=== PATIENT | female | born 1985 | race Caucasian/White ===

== ENCOUNTER 2018-01-10 00:23 | Emergency (ER) | payer MEDICAID ==
[2018-01-10 00:35] LABS: URINE APPEARANCE CLOUDY; URINE BILIRUBIN NEGATIVE (NEGATIVE); URINE BLOOD NEGATIVE (NEGATIVE); URINE COLOR YELLOW; URINE GLUCOSE (UA) NEGATIVE (NEGATIVE); URINE KETONE NEGATIVE (NEGATIVE); URINE LEUKOCYTE ESTERASE NEGATIVE (NEGATIVE); URINE NITRITE NEGATIVE (NEGATIVE); URINE PROTEIN NEGATIVE (NEGATIVE); URINE UROBILINOGEN 0.2 E.U./dL (0.20 - 1.00)
--- NOTE | 2018-01-10 00:36 | Emergency Department Record ---
History of Present Illness - General Chief complaint: Flank Pain Stated complaint: FLANK PAIN Time Seen by Provider: 01/10/18 00:23 Source: Patient Mode of Arrival: Ambulatory Limitations: No limitations - History of Present Illness Initial comments: 32 yo female presents to ED for evaluation of dysuria symptoms and right sided flank pain symptoms. Patient denies fevers, chills, abdominal pain, or vomiting symptoms. Patient does report previous symptoms with previous UTIs. Patient also reports previous kidney stones, however her flank pain symptoms were significantly worse at that time. Patient reports previous history of cholecystectomy, denies health problems at her baseline. MD Complaint: Dysuria Onset/Timin -: Week(s) Location: Suprapubic Radiation: R flank Severity: Moderate Severity scale (1-10): 5 Quality: Aching Consistency: Constant Improves with: None Worsens with: None Patient : No Associated Symptoms: Denies other symptoms - Related Data Sexually active: Yes Home Medications Medication Instructions Recorded Confirmed Last Taken Buspirone HCl [Buspar] 2.5 mg PO DAILY 01/10/18 01/10/18 01/09/18 Venlafaxine HCl [Effexor Xr] 150 mg PO BID 01/10/18 01/10/18 01/09/18 Previous Rx's Medication Instructions Recorded Naproxen [Naprosyn] 500 mg PO Q12H PRN #30 tab 01/10/18 Allergies Allergy/AdvReac Type Severity Reaction Status Date / Time No Known Drug Allergies Allergy Verified 01/10/18 00:34 Travel Screening - Travel/Exposure Within Last 30 Days Have you traveled within the last 30 days?: No - Travel Symptoms Symptom Screening: None Review of Systems Constitutional: Denies: Chills, Fever, Malaise Eyes: Denies: Eye discharge, Eye pain ENT: Denies: Congestion, Ear pain, Epistaxis Respiratory: Denies: Cough, Dyspnea Cardiovascular: Denies: Chest pain, Dyspnea on exertion Endocrine: Denies: Fatigue, Heat or cold intolerance Gastrointestinal: Denies: Abdominal pain, Nausea, Vomiting Genitourinary: Reports: Dysuria. Denies: Incontinence, Retention Musculoskeletal: Reports: Back pain. Denies: Arthralgia, Gout, Joint swelling Skin: Denies: Bruising, Change in color Neurological: Denies: Abnormal gait, Confusion, Headache, Seizure Psychiatric: Denies: Anxiety Hematological/Lymphatic: Denies: Anemia, Blood Clots Physical Exam - General General Appearance: Alert, Oriented x3, Cooperative, Mild distress Limitations: No limitations - Head Head exam: Atraumatic, Normocephalic, Normal inspection Head exam detail: negative: Abrasion, Contusion, Nicholas's sign, General tenderness, Hematoma, Laceration - Eye Eye exam: Normal appearance. negative: Conjunctival injection, Periorbital swelling, Periorbital tenderness, Scleral icterus - ENT Ear exam: negative: Auricular hematoma, Auricular trauma Nasal Exam: negative: Active bleeding, Discharge, Dried blood, Foreign body Mouth exam: negative: Drooling, Laceration, Muffled voice, Tongue elevation - Neck Neck exam: Normal inspection. negative: Meningismus, Tenderness - Respiratory Respiratory exam: Normal lung sounds bilaterally. negative: Rales, Respiratory distress, Rhonchi, Stridor - Cardiovascular Cardiovascular Exam: Regular rate, Normal rhythm, Normal heart sounds - GI/Abdominal GI/Abdominal exam: Soft. negative: Rebound, Rigid, Tenderness - Rectal Rectal exam: Deferred - exam: Deferred - Extremities Extremities exam: Normal inspection. negative: Pedal edema, Tenderness - Back Back exam: Reports: CVA tenderness (R). Denies: CVA tenderness (L) - Neurological Neurological exam: Alert, Normal gait, Oriented X3 - Psychiatric Psychiatric exam: Normal affect, Normal mood - Skin Skin exam: Normal color. negative: Abrasion Type of lesion: negative: abrasion Course Vital Signs 01/10/18 00:29 Temperature 97.4 F L Pulse Rate 89 Respiratory 18 Rate Blood Pressure 139/89 Pulse Ox 100 - Reevaluation(s) Reevaluation #1: 01/10/18 01:19 Laboratory studies were reviewed and are grossly unremarkable for an acute process. Patient is now back from CT imaging, reports improvement in her pain symptoms. Awaiting CT imaging results. Reevaluation #2: 01/10/18 02:03 CT Abdomen and Pelvis: No acute process Sebaceous cyst within the posterior left subcutaneous tissues measuring 3.6 x 2.2 cm Extensive scarring left renal cortical scarring No evidence appendicitis Umbilical hernia Patient was updated on all results, reports improvement in her pain symptoms. Patient denies vaginal discharge symptoms or vaginal irritation. Patient appears stable for discharge at this time. Medical Decision Making - Lab Data Result diagrams: 01/10/18 00:45 01/10/18 00:45 Disposition Disposition: Discharge Clinical Impression: Flank pain Disposition: Home, Self-Care Condition: (2) Stable Instructions: Flank Pain (ED) Additional Instructions: Return to ED if your symptoms worsen or if you have any concerns. Naprosyn as directed. Follow-up with your family doctor in 1-3 days as directed. Prescriptions: Naproxen [Naprosyn] 500 mg PO Q12H PRN #30 tab. PRN Reason: Pain - Mild To Moderate (1-7) Forms: Patient Portal Access Time of Disposition: 02:06 Quality - Quality Measures Quality Measures: N/A - Blood Pressure Screening Does Patient Have Any of the Following: No Blood Pressure Classification: Pre-Hypertensive BP Reading Systolic Measurement: 139 Diastolic Measurement: 89 Screening for High Blood Pressure: < Pre-Hypertensive BP, F/U Documented > [ [id number]] Pre-Hypertensive Follow-up Interventions: Referral to alternative/primary care provider.
[2018-01-10] MEDS ORDERED: KETOROLAC 30 MG/ML VIAL IVP ONE (00:40)
[2018-01-10] MEDS ORDERED: 0.9 % SODIUM CHLORIDE 1000ML 1,000 ML IV SCH (00:45)
[2018-01-10 00:55] LABS: BASO % 0.1 % (0-6); EOS % 1.8 % (0-6); GRAN % 45.4 % (47-80); HEMATOCRIT 41.2 % (35.0-47.0); HEMOGLOBIN 13.4 gm/dl (11.6-16.0); MEAN CELL VOLUME 89.4 fl (81-97); MEAN CORPUSCULAR HEMOGLOBIN 29.1 pg (27-33); MEAN CORPUSCULAR HGB CONC 32.5 g/dl (32-36); MEAN PLATELET VOLUME 10.9 fl (7.4-10.4); MONO % 8.7 % (0-9); PLATELET COUNT 186 K/uL (130-400); RED BLOOD COUNT 4.61 M/uL (3.80-5.40); RED CELL DISTRIBUTION WIDTH 14.9 % (11.5-14.5); WHITE BLOOD COUNT W/O DIFF 6.8 K/uL (4.2-12.2)
[2018-01-10 01:05] LABS: BILIRUBIN,TOTAL < 0.20 mg/dL (0.2-1.0); BLOOD UREA NITROGEN 16 mg/dL (6-20); CREATININE 0.8 mg/dL (0.5-0.9); EST GLOMERULAR FILTRATION RATE > 60 mL/min
[2018-01-10 01:06] LABS: TOTAL PROTEIN 6.6 g/dL (6.6-8.7)
[2018-01-10 01:08] LABS: GLUCOSE,RANDOM 94 mg/dL (74-109)
[2018-01-10 01:10] LABS: ALB/GLOB RATIO 1.5 (1.1-1.8); ALKALINE PHOSPHATASE 75 U/L (35-104); ALT/SGPT 14 U/L (<33); AST/SGOT 15 U/L (10.0-35.0)
[2018-01-10] MEDS ORDERED: ACETAMINOPHEN 1,000 MG/100 ML BTL IVPB ONE (01:29)
--- NOTE | 2018-01-11 08:08 | CT SCAN REPORT ---
EXAM: NONCONTRAST CT OF THE ABDOMEN AND PELVIS HISTORY: BACK PAIN, ABDOMINAL PAIN, HISTORY OF KIDNEY STONES. TECHNIQUE: Noncontrast CT of the abdomen and pelvis was obtained. Comparison: None. FINDINGS: The lung bases are clear. The gallbladder is absent. Unremarkable appearance of the liver, spleen, adrenal glands, and pancreas. No intrarenal or ureteral calculi are detected. No hydronephrosis. Multifocal left renal cortical scarring. The urinary bladder is mildly distended without focal abnormality. The stomach is distended with presumed ingested material. The small bowel is nondilated. The appendix is normal. No focal colonic thickening or inflammatory changes. No free air or free fluid. The abdominal aorta has a normal course and caliber. No mesenteric or retroperitoneal lymphadenopathy detected. Scattered minimally prominent retroperitoneal lymph nodes are noted. No adnexal abnormality detected. Well circumscribed ovoid subcutaneous soft tissue density lesion measuring 2.4 x 4.1 cm in the posterior soft tissues overlying the eleventh and twelfth ribs on the left. The lesion contacts the skin surface. No definite acute osseous findings. Minimal Grade 1 anterolisthesis of L5-S1 with left L5 spondylolysis. Disk bulges at L4-L5 and L5-S1. IMPRESSION: 1. NO DEFINITE ACUTE INTRAABDOMINAL FINDINGS. NO EVIDENCE OF UROLITHIASIS OR OBSTRUCTIVE UROPATHY. 2. NONSPECIFIC MULTIFOCAL LEFT RENAL CORTICAL SCARRING. 3. OVOID SUBCUTANEOUS LESION IN THE POSTERIOR SOFT TISSUES OVERLYING THE POSTERIOR LEFT ELEVENTH AND TWELFTH RIBS. FINDINGS INDETERMINATE, BUT COULD REPRESENT A STRUCTURE SUCH A SEBACEOUS CYST. CORRELATE WITH PHYSICAL EXAMINATION. 4. MINIMAL GRADE 1 ANTEROLISTHESIS OF L5-S1 WITH LEFT L5 PARS DEFECT. DISK BULGES ARE NOTED AT L4-L5 AND L5-S1. JOB NUMBER: [id number] [facility]
== END 2018-01-10 02:15 | disposition home or self-care (01) ==
LOC: ER 00:23
DX: M54.5 Low back pain (principal); R30.0 Dysuria; R10.31 Right lower quadrant pain; Z87.442 Personal history of urinary calculi
CPT/HCPCS: 74176; 80053; 81003; 81025; 85025; 96361; 96365; 96375; 99284; J1885; J7030